=== PATIENT | female | born 2000 | race Caucasian/White ===

== ENCOUNTER 2023-10-04 16:26 | Emergency (ER) | payer BC ==
--- NOTE | 2023-10-04 16:30 | ERPHSYRPT ---
- History of Present Illness Time Seen by Provider: 10/04/23 16:30 Source: patient Exam Limitations: no limitations Physician History: This is a morbidly obese 23-year-old white female patient of Dr. Velasco who presents with right ear pressure and muffled hearing out of the right ear. Patient states she had a similar issue in the past and it was caused by earwax. Patient denies fever. Patient denies dizziness. Patient denies loss of balance Timing/Duration: gradual onset Severity: mild ENT Location: ear (R) Prearrival Treatment: over the counter meds (Eardrops) Modifying Factors: Improves With: nothing Associated Symptoms: ear pain (R) (Described more as a mild pressure), hearing loss (Muffled hearing out of the right ear), other Allergies/Adverse Reactions: No Known Drug Allergies Allergy (Unverified 04/30/13 10:42) Home Medications: PANTOPRAZOLE 40 mg Tablet [Protonix 40MG Tablet] 40 mg PO DAILY 10/04/23 [History] Hx Tetanus, Diphtheria Vaccination/Date Given: Yes Hx Influenza Vaccination/Date Given: No Hx Pneumococcal Vaccination/Date Given: No Travel Risk - International Travel Have you traveled outside of the country in past 3 weeks: No - Emerging Infectious Disease Are you exhibiting symptoms associated with any current EIDs: No - Review of Systems Constitutional: No Symptoms Eyes: No Symptoms Ears, Nose, & Throat: Hearing Changes (Ear) Respiratory: No Symptoms Cardiac: No Symptoms Abdominal/Gastrointestinal: No Symptoms Genitourinary Symptoms: No Symptoms Musculoskeletal: No Symptoms Skin: No Symptoms Neurological: No Symptoms - Past Medical History Pertinent Past Medical History: Yes Neurological History: No Pertinent History ENT History: No Pertinent History Cardiac History: No Pertinent History Respiratory History: No Pertinent History Endocrine Medical History: No Pertinent History Musculoskeletal History: No Pertinent History GI Medical History: No Pertinent History Psycho-Social History: Depression - Past Surgical History Past Surgical History: No - Female History Hx Last Menstrual Period: na - Social History Smoking Status: Never smoker Exposure to second hand smoke: No Drug Use: none Patient Lives Alone: No - Nursing Vital Signs Nursing Vital Signs: Initial Vital Signs Pulse Rate 95 H 10/04/23 16:32 Blood Pressure 96/81 10/04/23 16:32 O2 Sat by Pulse Oximetry 97 08/19/24 16:32 Pain Scale Pain Intensity 0 - Physical Exam General Appearance: no apparent distress, alert, obese Eye Exam: bilateral eye: normal inspection, PERRL, EOMI Ear Exam: right ear: tenderness (Mild with associated pressure), bilateral ear: auricle normal, other (Bilateral ear canals and tympanic membranes with wax present.) Nasal Exam: normal inspection Throat Exam: normal Neck Exam: normal inspection Cardiovascular/Respiratory Exam: chest non-tender, no respiratory distress Abdominal Exam: non-tender Neurologic Exam: alert, oriented x 3, cooperative, marketing programs manager II-XII nml as tested, nml cerebellar function, nml station & gait, sensation nml Skin Exam: normal color, warm, dry SpO2 Interpretation: normal O2 Delivery: Room Air - Course Nursing assessment & vital signs reviewed: Yes - Progress Progress: unchanged Progress Note: 10/04/23 16:53 My medical decision making and the assignment of low complexity to this patient's medical issue today is based on review of the patient's past medical history, review the patient's medication list, review of the patient drug allergy list and physical findings on examination. No laboratory radiographic studies are necessary in this patient. Differential diagnosis includes was not limited to otitis media, otitis externa, cerumen I examined the patient. Patient is having some symptoms of mild tenderness and pressure. However, it is unclear whether her symptoms are due to underlying mild ear infection/inflammation around the tympanic membrane region or obstruction from cerumen or both. We will cover her from the infection and inflammation standpoint and have her obtain [id number] products to help remove her cerumen. Counseled pt/family regarding: diagnosis, need for follow-up Medical Desision Making - Diagnostic Testing Diagnostic test were ordered, analyzed, and reviewed by me: No - Risk of complications The pt has a mod risk of morbidity or mortality based on: Need for prescription drug management - Departure Departure Disposition: Home Clinical Impression: Right ear pain, Bilateral hearing loss due to cerumen impaction Condition: Stable Critical Care Time: No Referrals: MATTHEW HAQUE [Primary Care Provider] - Follow up/PCP as directed Additional Instructions: Take your antibiotics as prescribed. Use the [id number] cerumen or Debrox products and follow the directions on the package as. Call your primary care provider tomorrow, 10/05/2023, and make arrangements for referral to ENT or follow-up appointment with primary care provider in the next 2 to 3 days. Prescriptions: Prednisone 10 mg [Deltasone 10 mg] 10 mg PO TID #12 tablet Cephalexin Mh 500 mg [Keflex 500 mg] 500 mg PO TID #21 cap
[2023-10-04 16:40] VITALS: RESP 18; TEMP 97.6
[2023-10-04 17:03] VITALS: BP 109/53; PULSE 96; O2SAT 98
== END 2023-10-04 17:03 | disposition home or self-care (01) ==
LOC: ED 16:26
DX: H92.01 Otalgia, right ear (principal); H61.23 Impacted cerumen, bilateral
CPT/HCPCS: 99281